=== PATIENT | male | born 1995 | race Caucasian/White ===

== ENCOUNTER 2021-10-13 20:59 | Emergency (ER) | payer OTHER ==
[~2021-10-13] VITALS: Ht 175.3 cm; Wt 77.1 kg
[2021-10-14 00:49] VITALS: BP 130/69
[2021-10-14] MEDS ORDERED: LIDOCAINE VISCOUS 2% 15ML UD PO ONE (01:00)
[2021-10-14] MEDS ORDERED: ALUM & MAG HYDROX-SIMETH LIQ(MAALOX) 30 ML PO ONE (01:00)
[2021-10-14] MEDS ORDERED: DONNATAL 5ml ORAL Elix (BELLADONNA ALK-PHENOBARB) PO ONE (01:00)
== END 2021-10-14 01:25 | disposition home or self-care (01) ==
LOC: ER 21:02
DX: K21.9 Gastro-esophageal reflux disease without esophagitis (principal)
CPT/HCPCS: 71101